=== PATIENT | female | born 1980 | race Caucasian/White ===

== ENCOUNTER 2017-02-08 20:48 | Emergency (ER) | payer OTHER ==
[~2017-02-08] VITALS: Ht 170.2 cm; Wt 61.9 kg
[2017-02-08 21:20] VITALS: BP 119/73
== END 2017-02-08 22:07 | disposition home or self-care (01) ==
LOC: ED 20:48
DX: S61.211A Laceration without foreign body of left index finger without damage to nail, initial encounter (principal); W26.0XXA Contact with knife, initial encounter; Y93.89 Activity, other specified; Y92.89 Other specified places as the place of occurrence of the external cause; Y99.8 Other external cause status
CPT/HCPCS: 90715; J2001

== ENCOUNTER 2017-02-12 09:01 | Emergency (ER) | payer OTHER ==
[~2017-02-12] VITALS: Ht 170.2 cm; Wt 61.9 kg
[2017-02-12 11:38] VITALS: BP 122/70
== END 2017-02-12 11:38 | disposition home or self-care (01) ==
LOC: ED 09:01
DX: S61.211D Laceration without foreign body of left index finger without damage to nail, subsequent encounter (principal); X58.XXXD Exposure to other specified factors, subsequent encounter; Y99.8 Other external cause status; Y92.89 Other specified places as the place of occurrence of the external cause

== ENCOUNTER 2017-02-22 10:27 | Emergency (ER) | payer OTHER ==
[2017-02-22 10:40] VITALS: BP 119/73
== END 2017-02-22 11:00 | disposition home or self-care (01) ==
LOC: ED 10:27
DX: S61.012D Laceration without foreign body of left thumb without damage to nail, subsequent encounter (principal); X58.XXXD Exposure to other specified factors, subsequent encounter; Y99.8 Other external cause status; Y92.89 Other specified places as the place of occurrence of the external cause

== ENCOUNTER 2017-03-30 16:58 | Emergency (ER) | payer OTHER ==
[2017-03-30 22:46] VITALS: BP 125/68
== END 2017-03-30 22:46 | disposition home or self-care (01) ==
LOC: ED 16:58
DX: S09.90XA Unspecified injury of head, initial encounter (principal); M54.12 Radiculopathy, cervical region; W22.8XXA Striking against or struck by other objects, initial encounter; Y93.89 Activity, other specified; Y92.89 Other specified places as the place of occurrence of the external cause; Y99.8 Other external cause status

== ENCOUNTER 2019-06-14 22:44 | Emergency (ER) | payer OTHER ==
[~2019-06-14] VITALS: Ht 170.2 cm; Wt 59.0 kg
[2019-06-14 22:55] VITALS: Ht 170.2 cm; Wt 59.0 kg
[2019-06-14 23:24] VITALS: BP 112/52
== END 2019-06-14 23:24 | disposition home or self-care (01) ==
LOC: ED 22:44
DX: H92.02 Otalgia, left ear (principal)

== ENCOUNTER 2019-09-28 12:52 | Emergency (ER) | payer OTHER ==
[~2019-09-28] VITALS: Ht 167.6 cm; Wt 60.8 kg
[2019-09-28 12:57] VITALS: Ht 167.6 cm; Wt 60.8 kg
[2019-09-28 16:17] VITALS: BP 118/59
== END 2019-09-28 16:17 | disposition home or self-care (01) ==
LOC: ED 12:52
DX: J06.9 Acute upper respiratory infection, unspecified (principal)

== ENCOUNTER 2019-10-08 23:16 | Emergency (ER) | payer OTHER ==
[~2019-10-08] VITALS: Ht 167.6 cm; Wt 61.7 kg
[2019-10-08 23:21] VITALS: Ht 167.6 cm; Wt 61.7 kg
[2019-10-09 00:22] LABS: BASOPHIL % 0.4 % (0-2); PLATELET COUNT 247 x10^3mcL (130-400)
[2019-10-09 00:28] LABS: RED CELL DISTRIBUTION WIDTH 14.8 % (11.5-14.5)
[2019-10-09 00:29] LABS: CALCIUM 8.7 mg/dL (8.5-10.1); CARBON DIOXIDE 27.7 mmol/L (21-32); CHLORIDE SERUM 103 mmol/L (98-107); CREATININE SERUM 0.7 mg/dL (0.6-1.0); GFR1 > 60 mL/min; GLUCOSE SERUM 106 mg/dL (74-106); POTASSIUM SERUM 4.2 mmol/L (3.5-5.1); SODIUM SERUM 138 mmol/L (136-145)
[2019-10-09 00:35] LABS: ALBUMIN 3.9 g/dL (3.4-5.0); ALKALINE PHOSPHATASE 77 U/L (46-116); ALT/SGPT 21 U/L (14-59); AST/SGOT 13 U/L (15-37); BILIRUBIN TOTAL 0.1 mg/dL (0.20-1.00); CHOLESTEROL 164 mg/dL (<200); CHOLESTEROL/HDL RATIO 2.7; HDL CHOLESTEROL 60 mg/dL (40-60); TRIGLYCERIDES 112 mg/dL (<150)
[2019-10-09 00:36] LABS: TOTAL PROTEIN, SERUM 8.4 g/dL (6.4-8.2)
[2019-10-09 04:40] VITALS: BP 104/63
== END 2019-10-09 04:40 | disposition home or self-care (01) ==
LOC: ED 23:16
PROVIDERS: Specialist
DX: R07.89 Other chest pain (principal); R06.02 Shortness of breath; Z87.19 Personal history of other diseases of the digestive system
CPT/HCPCS: 36415; 83880; 87804; Q0092

== ENCOUNTER 2019-11-18 20:57 | Emergency (ER) | payer OTHER ==
[~2019-11-18] VITALS: Ht 167.6 cm; Wt 59.0 kg
[2019-11-18 21:02] VITALS: Ht 167.6 cm; Wt 59.0 kg
[2019-11-18 22:10] LABS: BASOPHIL % 0.4 % (0-2); PLATELET COUNT 231 x10^3mcL (130-400)
[2019-11-18 22:11] LABS: RED CELL DISTRIBUTION WIDTH 14.9 % (11.5-14.5)
[2019-11-18 23:00] LABS: CALCIUM 9.4 mg/dL (8.5-10.1); CARBON DIOXIDE 25.9 mmol/L (21-32); CHLORIDE SERUM 103 mmol/L (98-107); CREATININE SERUM 0.7 mg/dL (0.6-1.0); GFR1 > 60 mL/min; GLUCOSE SERUM 90 mg/dL (74-106); POTASSIUM SERUM 3.9 mmol/L (3.5-5.1); SODIUM SERUM 140 mmol/L (136-145)
[2019-11-18 23:09] LABS: ALBUMIN 3.9 g/dL (3.4-5.0); ALKALINE PHOSPHATASE 57 U/L (46-116); ALT/SGPT 22 U/L (14-59); AST/SGOT 14 U/L (15-37); BILIRUBIN TOTAL 0.3 mg/dL (0.20-1.00); TOTAL PROTEIN, SERUM 7.8 g/dL (6.4-8.2)
[2019-11-18 23:36] LABS: T4(THYROXINE) 9.5 ug/dL (4.7-13.3)
[2019-11-19 00:03] VITALS: BP 116/69
== END 2019-11-19 00:11 | disposition home or self-care (01) ==
LOC: ED 20:57
PROVIDERS: Emergency Medicine
DX: M94.0 Chondrocostal junction syndrome [Tietze] (principal); K21.9 Gastro-esophageal reflux disease without esophagitis
CPT/HCPCS: 36415; 83880; J1885; Q0092

== ENCOUNTER 2020-02-09 11:24 | Emergency (ER) | payer OTHER ==
[~2020-02-09] VITALS: Ht 167.6 cm; Wt 59.0 kg
[2020-02-09 11:37] VITALS: Ht 167.6 cm; Wt 59.0 kg
[2020-02-09 12:10] LABS: CARBON DIOXIDE 27.4 mmol/L (21-32); CHLORIDE SERUM 102 mmol/L (98-107); CREATININE SERUM 0.8 mg/dL (0.6-1.0); GFR1 > 60 mL/min; GLUCOSE SERUM 91 mg/dL (74-106); POTASSIUM SERUM 3.8 mmol/L (3.5-5.1); SODIUM SERUM 139 mmol/L (136-145)
[2020-02-09 12:15] LABS: ALBUMIN 4.1 g/dL (3.4-5.0); ALKALINE PHOSPHATASE 78 U/L (46-116); ALT/SGPT 21 U/L (14-59); AST/SGOT 14 U/L (15-37); BILIRUBIN TOTAL 0.43 mg/dL (0.20-1.00); C REACTIVE PROTEIN 0.5 mg/dL (<=0.9); TOTAL PROTEIN, SERUM 8.4 g/dL (6.4-8.2)
[2020-02-09 12:16] LABS: BASOPHIL % 0.6 % (0-2); PLATELET COUNT 241 x10^3mcL (130-400); RED CELL DISTRIBUTION WIDTH 14.5 % (11.5-14.5)
[2020-02-09 13:49] LABS: ERYTHROCYTE SED RATE 20 mm/hr (0-20)
[2020-02-09 13:55] VITALS: BP 122/70
== END 2020-02-09 13:55 | disposition home or self-care (01) ==
LOC: ED 11:24
PROVIDERS: Emergency Medicine
DX: R51 Headache (principal); M25.511 Pain in right shoulder; R53.1 Weakness; Z20.828 Contact with and (suspected) exposure to other viral communicable diseases
CPT/HCPCS: J1885; U0003-CS

== ENCOUNTER 2020-02-12 09:57 | Emergency (ER) | payer OTHER ==
[~2020-02-12] VITALS: Ht 167.6 cm; Wt 59.0 kg
[2020-02-12 10:04] VITALS: Ht 167.6 cm; Wt 59.0 kg
[2020-02-12 11:00] LABS: UA SPECIFIC GRAVITY 1.025 (1.005-1.035); microscopic required? YES; urine erythrocyte TRACE (NEGATIVE)
[2020-02-12 11:03] LABS: BASOPHIL % 1.6 % (0-2); PLATELET COUNT 222 x10^3mcL (130-400); RED CELL DISTRIBUTION WIDTH 14.3 % (11.5-14.5)
[2020-02-12 12:16] LABS: CARBON DIOXIDE 28.4 mmol/L (21-32); CHLORIDE SERUM 101 mmol/L (98-107); CREATININE SERUM 0.7 mg/dL (0.6-1.0); GFR1 > 60 mL/min; GLUCOSE SERUM 87 mg/dL (74-106); POTASSIUM SERUM 4.2 mmol/L (3.5-5.1); SODIUM SERUM 139 mmol/L (136-145)
[2020-02-12 12:20] LABS: ALKALINE PHOSPHATASE 58 U/L (46-116); ALT/SGPT 18 U/L (14-59); AST/SGOT 22 U/L (15-37); BILIRUBIN TOTAL 0.5 mg/dL (0.20-1.00); MAGNESIUM 2.1 mg/dL (1.8-2.4); TOTAL PROTEIN, SERUM 8.1 g/dL (6.4-8.2)
[2020-02-12 12:45] VITALS: BP 115/62
== END 2020-02-12 12:45 | disposition home or self-care (01) ==
LOC: ED 09:57
PROVIDERS: Emergency Medicine
DX: N39.0 Urinary tract infection, site not specified (principal); R55 Syncope and collapse; M79.10 Myalgia, unspecified site
CPT/HCPCS: J1885; J2405; J7030; Q0092

== ENCOUNTER 2020-07-06 11:15 | Emergency (ER) | payer OTHER ==
[~2020-07-06] VITALS: Ht 167.6 cm; Wt 59.9 kg
[2020-07-06 11:17] VITALS: Ht 167.6 cm; Wt 59.9 kg
[2020-07-06 14:21] VITALS: BP 154/83
== END 2020-07-06 14:21 | disposition home or self-care (01) ==
LOC: ED 11:15
DX: B34.9 Viral infection, unspecified (principal); J02.9 Acute pharyngitis, unspecified; R51.9 Headache, unspecified; R06.02 Shortness of breath; R05 Cough; R19.7 Diarrhea, unspecified; Z20.828 Contact with and (suspected) exposure to other viral communicable diseases
CPT/HCPCS: U0003